=== PATIENT | male | born 1995 | race Caucasian/White ===

== ENCOUNTER 2023-07-18 12:13 | Emergency (ER) | payer MEDICAID ==
[~2023-07-18] VITALS: Ht 170.2 cm; Wt 69.0 kg
[2023-07-18 12:26] VITALS: BP 139/90; PULSE 98; RESP 12; TEMP 99.1; O2SAT 98
[2023-07-18] MEDS ORDERED: AMOX1TAB16 MT (12:37)
== END 2023-07-18 15:00 | disposition home or self-care (01) ==
LOC: ER 12:13
DX: H66.91 Otitis media, unspecified, right ear (principal)
CPT/HCPCS: 99283